=== PATIENT | female | born 1950 | race Caucasian/White ===

== ENCOUNTER → 2021-07-13 13:10 | Outpatient (CLI) | payer MEDICARE, SELFPAY ==
--- NOTE | ~2021-07-13 | DEXA_ITS ---
Bone Density Report Name: AMI VELAZQUEZ Age: 70 Sex: Female Ethnicity: White Date of : 1950 Indication: postmenopausal osteoporosis; monitoring treatment; Referring Provider: Gila Parham Study: Bone densitometry was performed. Exam Date: July 13, 2021 Accession number: [id number] Bone Density: Region BMD T-score Z-score Classification AP Spine (L1-L4) 0.887 -1.5 0.7 Osteopenia Femoral Neck (Left) 0.575 -2.5 -0.6 Osteoporosis Total Hip (Left) 0.635 -2.5 -1.0 Osteoporosis Femoral Neck (Right) 0.542 -2.8 -0.9 Osteoporosis Total Hip (Right) 0.607 -2.7 -1.2 Osteoporosis Total Hip Mean 0.621 -2.6 -1.1 Osteoporosis World Health Organization criteria for BMD impression classify patients as: Normal (T-score at or above -1.0), Osteopenia (T-score between -1.0 and -2.5), or Osteoporosis (T-score at or below -2.5). 10-year Fracture Risk: FRAX not reported because: Some T-score for Spine Total or Hip Total or Femoral Neck at or below -2.5 Treated for osteoporosis Previous Exams: Region Exam Age BMD T-score BMD Change BMD Change Date g/cm2 vs Baseline vs Previous AP Spine(L1-L4) 07/13/2021 70 0.887 -1.5 0.100* 0.040* 03/19/2019 68 0.847 -1.8 0.060* 0.060* 12/20/2016 66 0.787 -2.4 Total Hip(Left) 07/13/2021 70 0.635 -2.5 0.005 -0.012 03/19/2019 68 0.647 -2.4 0.017 0.017 12/20/2016 66 0.630 -2.6 Total Hip(Right) 07/13/2021 70 0.607 -2.7 -0.003 -0.013 03/19/2019 68 0.620 -2.6 0.010 0.010 12/20/2016 66 0.610 -2.7 *Denotes significance at 95% confidence level, LSC for AP Spine = 0.022 g/cm2, LSC for Total Hip = 0.027 g/cm2 Clinical Information Provided by Patient: Is being treated for osteoporosis Has used the following medications: Fosamax (i.e. alendronate), Vitamin D, Calcium Patient maximum height was 65 Menopause Age: 50 Drinks caffeinated beverages Onset of menses at age 16 Number of children 1 Impression: The patient has osteoporosis, based on the Right Femoral Neck T-score. No significant bone loss was observed. Discussion: PATIENT UNDER TREATMENT WITH NO SIGNIFICANT BMD LOSS SINCE LAST EXAM. In an untreated patient, BMD typically declines with age. A lack of decline or gain is usually a sign that treatment is efficacious and fracture risk is reduced. It is important to ask patients whether they
--- NOTE | ~2021-07-13 | MM_ITS ---
EXAMINATION: MM screening brennan BI w judy HISTORY: Screening mammogram TECHNIQUE: Craniocaudal and mediolateral oblique 3-D tomosynthesis images were obtained and synthetic 2-D images were generated. CAD analysis was submitted and interpreted. COMPARISON: 03/19/2019, 07/19/2015 bilateral screening mammogram examinations BREAST PARENCHYMAL COMPOSITION: The breasts are heterogeneously dense, which may obscure small masses . FINDINGS: There is no evidence of suspicious mass, calcification, or architectural distortion to sugg est malignancy in either breast. There has been no suspicious interval change. IMPRESSION: 1. No mammographic evidence of malignancy. 2. Recommend routine screening mammography in one year. BI-RADS Category 1: Negative Reviewed, dictated and finalized at location D.
== END ==
PROVIDERS: PCP Nurse Practitioner Family; Visit Provider Nurse Practitioner Family
DX: Z12.31 Encounter for screening mammogram for malignant neoplasm of breast (principal); Z78.0 Asymptomatic menopausal state; M85.88 Other specified disorders of bone density and structure, other site; M81.0 Age-related osteoporosis without current pathological fracture
CPT/HCPCS: 77063; 77067; 77080

== ENCOUNTER → 2022-08-08 10:24 | Outpatient (CLI) | payer MEDICARE, SELFPAY ==
--- NOTE | ~2022-08-08 | MM_ITS ---
EXAMINATION: MM screening brennan BI w judy HISTORY: Screening mammogram TECHNIQUE: Craniocaudal and mediolateral oblique 3-D tomosynthesis images were obtained and synthetic 2-D images were generated. CAD analysis was submitted and interpreted. COMPARISON: 07/2021, 03/19/2019, 07/19/2015 bilateral screening mammogram examinations BREAST PARENCHYMAL COMPOSITION: The breasts are heterogeneously dense, which may obscure small masses . FINDINGS: There is no evidence of suspicious mass, calcification, or architectural distortion to sugg est malignancy in either breast. There has been no suspicious interval change. IMPRESSION: 1. No mammographic evidence of malignancy. 2. Recommend routine screening mammography in one year. BI-RADS Category 1: Negative Reviewed, dictated and finalized at location A.
== END ==
PROVIDERS: PCP Family Medicine; Visit Provider Physician Assistant
DX: Z12.31 Encounter for screening mammogram for malignant neoplasm of breast (principal)
CPT/HCPCS: 77063; 77067

== ENCOUNTER 2023-01-24 11:57 | Emergency (ER) | payer MEDICARE, SELFPAY ==
[2023-01-24 12:19] VITALS: BP 131/74; PULSE 106; RESP 16; TEMP 36.6; O2SAT 100
--- NOTE | 2023-01-24 13:27 | ED.EAR ---
HPI - Ear Problem General Chief complaint: Ear Stated complaint: Earache Time Seen by Provider: 01/24/23 13:20 Source: patient and RN notes reviewed Mode of arrival: ambulatory Limitations: no limitations History of Present Illness HPI Narrative: Patient presents today with bilateral ear pain since yesterday morning, left greater than right. Denies any additional symptoms. She has been taking DayQuil without relief. She is currently pain-free, but increases with movement. Related Data Home Medications Medication Instructions Recorded Confirmed calcium carbonate 600 mg calcium 600 mg PO BID 01/28/20 01/24/23 (1,500 mg) tablet (Calcium) cholecalciferol (vitamin D3) 50 50 mcg PO DAILY 01/28/20 01/24/23 mcg (2,000 unit) capsule qmkmhmtnerfp-jqsostru-obacyo tablet 1 tablet PO DAILY 01/28/20 01/24/23 triamcinolone acetonide 0.1 % 1 applic topical BID 08/30/22 01/24/23 topical cream vit C 250 mg-E 90 mg-zinc 40 1 tablet PO .qd 11/28/22 01/24/23 mg-copper 1 wx-omvpyj-geggkn chew tablet (PreserVision AREDS-2) Allergies Allergy/AdvReac Type Severity Reaction Status Date / Time PROPOXYPHENE HCL Allergy Intermediate DIZZY Uncoded 01/24/23 13:03 Review of Systems Review of Systems: CONSTITUTIONAL: Denies body aches, fever, chills, or sweats. EYES: Denies visual changes, redness, or discharge. ENT: Denies rhinorrhea, congestion, sore throat. + bilateral ear pain CARDIOVASCULAR: Denies chest pain, palpitations, or edema. RESPIRATORY: Denies cough or dyspnea. GASTROINTESTINAL: Denies abdominal pain, nausea, vomiting, or diarrhea. GENITOURINARY: Denies dysuria or hematuria. SKIN: Denies rash, itching, or wounds. MUSCULOSKELETAL: Denies back pain, joint pain, or myalgia. NEUROLOGIC: Denies headache, numbness, tingling, or weakness. PSYCH: Denies depression or anxiety. FORMERLY [facility], 1928–1983 Past Medical History Medical History Age related osteoporosis Surgical History Surgical History No history of previous surgery Family History Family History Other Cerebrovascular accident Family history of arthritis Family history of attention deficit hyperactivity disorder (ADHD) Family history of cardiovascular disease Family history of coronary artery disease Social History Social History Social History: Patient lives with . She has 1 adult son. 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 Caffeine-diet soda Smoking status: Never smoker Alcohol intake: never Substance use: never Substance use type: does not use Lack of Transportation: No Lack of Food: Never True Current Housing: I Have Housing Concerned About Future Housing: No Difficulty Paying Gas/Electric Bills: No Difficulty Paying for Meds: No Currently Unemployed: No Education: Associate Degree Difficulty w/ Childcare or Family Care: No Living arrangements: with family Occupation/Education: occupation Additional occupation/education comments: Works 3 nights a week Gender identity (if verbalized by the patient): Female Sexual Orientation (if Verbalized by the Patient): Straight or Heterosexual Agree to blood products: Yes Comments At time of signature, I have reviewed and agree with nursing past medical, surgical, social and family history unless otherwise noted. Please see nursing chart for further information. There is no relevant family history pertinent to the presenting complaint Exam Narrative: GENERAL: Well-appearing, well-nourished, and in no acute distress. HEAD: Normocephalic, atraumatic. EYES: Left eye droop ENT: Mucous membranes pink and moist. Nares clear. No rhinorrhea. Bilateral swollen and erythematous ear canals, left greater than right. NECK: N
== END 2023-01-24 13:43 | disposition home or self-care (01) ==
PROVIDERS: Emergency Provider Nurse Practitioner; PCP Family Medicine
DX: H60.503 Unspecified acute noninfective otitis externa, bilateral (principal); Z79.899 Other long term (current) drug therapy
CPT/HCPCS: 99213; G0463

== ENCOUNTER 2023-08-20 10:30 | Outpatient (CLI) | payer MEDICARE, SELFPAY ==
--- NOTE | ~2023-08-20 | XR_ITS ---
Lumbosacral Spine: AP and lateral views Clinical History: Pain Findings: The normal lordotic curve is maintained. No fracture or subluxation. There is moderate to s evere facet arthropathy throughout the lumbar spine. There is advanced degenerative disc narrowing at L2-L3. There is moderate degenerative disc narrowing at remaining lumbar levels. The sacroiliac join ts are normally outlined. Impression: Moderate to advanced degenerative spondylosis, as detailed above. Reviewed, dictated and finalized at location M. Impression: Moderate to advanced degenerative spondylosis, as detailed above.
== END 2023-08-20 10:31 ==
LOC: GOSHIMG 10:31
PROVIDERS: PCP Nurse Practitioner Family; Visit Provider Nurse Practitioner Family
DX: M47.896 Other spondylosis, lumbar region (principal)
CPT/HCPCS: 72100

== ENCOUNTER 2024-04-15 14:33 | Outpatient (CLI) | payer MEDICARE, SELFPAY ==
--- NOTE | ~2024-04-15 | MM_ITS ---
EXAMINATION: MM screening brennan BI w judy HISTORY: Screening TECHNIQUE: Craniocaudal and mediolateral oblique 3-D tomosynthesis images were obtained and synthetic 2-D images were generated. CAD analysis was submitted and interpreted. COMPARISON: Comparison to multiple prior studies sequentially, with oldest reviewed study dated 11/2015. BREAST PARENCHYMAL COMPOSITION: Dense: The breasts are heterogeneously dense, which may obscure small masses FINDINGS: There is no evidence of suspicious mass, calcification, or architectural distortion to sugg est malignancy in either breast. There has been no suspicious interval change. IMPRESSION: 1. No mammographic evidence of malignancy. 2. Recommend routine screening mammography in one year. BI-RADS Category 1: Negative Reviewed, dictated and finalized at location B. [employer]IE[employer]
--- NOTE | ~2024-04-15 | DEXA_ITS ---
Bone Density Report Name: AMI VELAZQUEZ Age: 73 Sex: Female Ethnicity: White Date of : 1950 Indication: postmenopausal; screening for osteoporosis; Referring Provider: LILY ALCANTAR Study: Bone densitometry was performed. Exam Date: April 15, 2024 Accession number: [id number] Bone Density: Region BMD T-score Z-score Classification AP Spine(L2, L3, L4) 1.024 -0.5 1.9 Normal Femoral Neck (Left) 0.525 -2.9 -0.9 Osteoporosis Total Hip (Left) 0.646 -2.4 -0.7 Osteopenia Femoral Neck (Right) 0.542 -2.8 -0.8 Osteoporosis Total Hip (Right) 0.686 -2.1 -0.4 Osteopenia Total Hip Mean 0.666 -2.3 -0.6 Osteopenia World Health Organization criteria for BMD impression classify patients as: Normal (T-score at or above -1.0), Osteopenia (T-score between -1.0 and -2.5), or Osteoporosis (T-score at or below -2.5). 10-year Fracture Risk: FRAX not reported because: Some T-score for Spine Total or Hip Total or Femoral Neck at or below -2.5 Treated for osteoporosis Clinical Information Provided by Patient: Is being treated for osteoporosis Has used the following medications: Fosamax (i.e. alendronate), Vitamin D, Calcium Patient maximum height was 65 Menopause Age: 50 No regular weight bearing exercise Drinks caffeinated beverages Onset of menses at age 14 Number of children 1 Impression: The patient has osteoporosis, based on the Left Femoral Neck T-score. Discussion: It is important to ask patients whether they are taking their medications and to encourage continued and appropriate compliance with their osteoporosis therapies to reduce fracture risk. It is also important to review their risk factors and encourage appropriate calcium and vitamin D intakes, exercise, fall prevention and other lifestyle measures. Follow-Up: Consider a repeat BMD and Vertebral Fracture Assessment (VFA) exam in 2 years or sooner if medically necessary, to reassess this patient's status. Reported by: MARYANNE on 04/15/2024 3:22:00 PM. Reviewed, dictated and finalized at location A.
== END 2024-04-15 14:34 | disposition home or self-care (01) ==
PROVIDERS: PCP Nurse Practitioner Family; Visit Provider Nurse Practitioner Family
DX: Z12.31 Encounter for screening mammogram for malignant neoplasm of breast (principal); M81.0 Age-related osteoporosis without current pathological fracture; Z78.0 Asymptomatic menopausal state; Z13.820 Encounter for screening for osteoporosis
CPT/HCPCS: 77063; 77067; 77080